=== PATIENT | male | born 1995 | race Caucasian/White ===

== ENCOUNTER 2019-01-17 09:45 | Emergency (ER) | payer MEDICAID, OTHER ==
[~2019-01-17] VITALS: Ht 175.3 cm; Wt 69.0 kg
[~2019-01-17 09:45] MED LIST: BAC15O TP; IBUP-1984 PO
[2019-01-17 09:53] VITALS: BP 127/72
[2019-01-17] MEDS ORDERED: PENI500T2 PO (10:59)
== END 2019-01-17 11:08 | disposition home or self-care (01) ==
LOC: ER 09:45
DX: J02.9 Acute pharyngitis, unspecified (principal); R59.0 Localized enlarged lymph nodes; J39.2 Other diseases of pharynx; Z79.2 Long term (current) use of antibiotics; Z79.1 Long term (current) use of non-steroidal anti-inflammatories (NSAID)
CPT/HCPCS: 87081; 87880; 99283

== ENCOUNTER 2019-10-08 10:27 | Emergency (ER) | payer OTHER ==
[~2019-10-08] VITALS: Ht 172.7 cm; Wt 63.6 kg
[2019-10-08 10:32] VITALS: BP 120/79
--- NOTE | 2019-10-08 10:51 | NUR ---
CONTACTED POISON CONTROL RE ACCIDENTAL INGESTION OF "HELLER TYPE A PLANT NUTRENT" PER POSION CONTROL OBSERVE PT FOR 1HR. IF ANY CHANGES TO MENTAL STATUS, ACTIVE VOMITING, OR CHANGE IN VS OBTAIN A "MET HBG LEVEL"
== END 2019-10-08 11:58 | disposition home or self-care (01) ==
LOC: ER 10:28
DX: T18.9XXA Foreign body of alimentary tract, part unspecified, initial encounter (principal); Z72.89 Other problems related to lifestyle; Z79.899 Other long term (current) drug therapy; X58.XXXA Exposure to other specified factors, initial encounter; Y93.89 Activity, other specified; Y92.89 Other specified places as the place of occurrence of the external cause; Y99.8 Other external cause status
CPT/HCPCS: 99281